=== PATIENT | female | born 1930 | race Caucasian/White ===

== ENCOUNTER → 2016-11-18 | Outpatient (CLI) | payer OTHER, MEDICARE ==
[~2016-11-18] MED LIST: ADULT LOW DOSE81 M1 PO; AMLODIPINE BESY10 MG PO; ASPIR-LOW81 MG PO; ATENOLOL100 MG; ATENOLOL100 MG PO; ATENOLOL50 M1 PO; CIPROFLOXACIN500 M1 PO; CRANBERRY450 M1 PO; LEVOTHROID,SY0.05 MG PO; LEVOXYL50 MCG PO; Levaquin PO; METFORMIN HCL1000 MG PO; METFORMIN HCL500 MG PO; PRADAXA75 MG PO; PRAVASTATIN SOD40 MG PO; PRILOSEC20 MG PO; Pradaxa PO; PriLOSEC PO; SIMVASTATIN40 M1 PO; TENORMIN100 M1 PO; VITAMIN D22000 UNIT PO; ZESTORETIC,P1 TABLET PO
== END | disposition home or self-care (01) ==
DX: R13.10 Dysphagia, unspecified (principal); K21.9 Gastro-esophageal reflux disease without esophagitis; K44.9 Diaphragmatic hernia without obstruction or gangrene
CPT/HCPCS: 92611 GN; G8996 GN; G8997 GN; G8998 GN